=== PATIENT | female | born 1995 | race Caucasian/White ===

== ENCOUNTER → 2019-09-18 17:26 | Outpatient (CLI) | payer OTHER, SELFPAY | DX: Z23 Encounter for immunization (principal) | CPT/HCPCS: 90471; 90686 ==

== ENCOUNTER → 2020-08-27 | Outpatient (CLI) | payer OTHER, SELFPAY | PROVIDERS: Referring Provider Internal Medicine; Visit Provider Internal Medicine | DX: Z23 Encounter for immunization (principal) | CPT/HCPCS: 90471; 90686 ==

== ENCOUNTER → 2020-11-25 08:24 | Outpatient (CLI) | payer OTHER, SELFPAY ==
[2020-11-25] MEDS: COVID-19 VACC(MODERNA-1)/PF 100 MCG/0.5 ML VIAL IM (08:31)
== END ==
PROVIDERS: Visit Provider Internal Medicine
DX: Z23 Encounter for immunization (principal)
CPT/HCPCS: 0011A; 91301

== ENCOUNTER → 2021-09-08 | Outpatient (CLI) | payer OTHER, SELFPAY | PROVIDERS: Referring Provider Internal Medicine; Visit Provider Internal Medicine | DX: Z23 Encounter for immunization (principal) | CPT/HCPCS: 90471; 90686 ==

== ENCOUNTER → 2022-06-06 15:40 | Outpatient (CLI) | payer OTHER, SELFPAY ==
[2022-06-06 17:00] LABS: Add Manual Diff / Slide Review NO; Basophils Absolute Auto 0 /uL (0-100); Basophils Percent Auto 0.4 % (0-2); Eosinophils Absolute Auto 0 /uL (0-450); Eosinophils Percent Auto 0.6 % (2-4); Hematocrit 36.7 % (36-46); Lymphocytes Absolute Auto 1300 /uL (1100-4500); Lymphocytes Percent Auto 19.9 % (25-40); Mean Corpuscular HGB Conc 35.3 % (30-36); Mean Corpuscular Hemoglobin 32.9 PG (26-34); Mean Corpuscular Volume 93.1 fL (80-100); Monocytes Absolute Auto 400 /uL (0-900); Neutrophils Absolute Auto 4600 /uL (1500-7000); Neutrophils Percent Auto 73.1 % (50-75); Platelet Count 252 X10^3/uL (150-400); Red Blood Cell Count 3.94 X10^6/uL (4.0-5.2); Red Cell Distribution Width 12.5 % (11.6-14.8); White Blood Cell Count 6.3 X10^3/uL (4.5-11.0)
[2022-06-06 17:14] LABS: Appearance Urine UA CLEAR; Bilirubin Urine UA NEGATIVE (NEGATIVE); Color Urine UA YELLOW; Glucose Urine UA NEGATIVE (Negative); Ketones Urine UA NEGATIVE (NEGATIVE); Leukocyte Esterase Urine UA TRACE (NEGATIVE); Nitrite Urine UA NEGATIVE (Negative); Occult Blood Urine UA TRACE-INTACT (Negative); Protein Urine UA NEGATIVE (Negative); Urobilinogen Urine UA 0.2 E.U./dL (0.2)
[2022-06-06 17:55] LABS: Hepatitis B Surface Antigen NEGATIVE s/c (NEGATIVE); Rubella Antibody IgG 17.5 IU/mL (>15)
[2022-06-06 18:14] LABS: HIV 1 & 2 Ab/Ag 4th Gen Combo NEGATIVE (NEGATIVE); Hep C Virus Ab w/Reflex Quant NEGATIVE s/c (NEGATIVE)
[2022-06-06 19:02] LABS: Bacteria Urine Few (2-10); Calcium Oxalate Crystals Urine Few; RBC Urine 0-1/HPF (0-5/HPF); Squamous Epithelial Cell Urine 1-5 /HPF (0-5/HPF); WBC Urine 1-5/HPF (0-5/HPF)
[2022-06-07 07:39] LABS: RPR Screen Non Reactive (Non Reactive)
[2022-06-07 14:20] LABS: Varicella IgG Antibody 189 index (Immune >165)
== END ==
PROVIDERS: PCP Physician Assistant; Referring Provider Obstetrics & Gynecology; Visit Provider Obstetrics & Gynecology
DX: Z34.01 Encounter for supervision of normal first pregnancy, first trimester (principal)
CPT/HCPCS: 36415; 80055; 81003; 81015; 86787; 86803; 86850; 86900; 86901; 87086; 87389

== ENCOUNTER → 2022-08-02 10:31 | Outpatient (CLI) | payer OTHER, SELFPAY ==
[2022-08-04 22:04] LABS: AFP Value 43.9 ng/mL (.); Gest Age on Col Date 18.3 weeks (.); Insulin Dep Diabetes No (.); OSBR Risk 1IN 10000 (.); Results Report (.); Test Results *Screen Negative* (.)
== END ==
PROVIDERS: PCP Physician Assistant; Referring Provider Obstetrics & Gynecology; Visit Provider Obstetrics & Gynecology
DX: Z34.02 Encounter for supervision of normal first pregnancy, second trimester (principal); Z3A.18 18 weeks gestation of pregnancy
CPT/HCPCS: 36415; 82105

== ENCOUNTER → 2022-08-16 12:23 | Outpatient (CLI) | payer OTHER, SELFPAY ==
--- NOTE | 2022-08-16 12:25 | DI.US.S_ITS ---
PROCEDURE: US OB >= 14 WEEKS FETUS INDICATIONS: ANATOMY SCREEN OUTSIDE/PRIOR DATING DATA: Last menstrual period (LMP): Unknown LMP-based estimated date of delivery (CHERISE): Unknown. First dating scan (date and location): 06/01/2022. Estimated date of delivery (CHERISE) from first dating scan: 12/29/2021. The calculations are made using the ultrasound CHERISE of 12/29/2021. TECHNIQUE: Real-time scanning was performed of the fetus, with image documentation and biometric measurements. COMPARISON: None. FINDINGS: General: A single living intrauterine gestation is present. Presentation: Vertex. Placenta: Placental position is posterior , without previa. Amniotic fluid index: 8.9 cm, normal range is 5-24 cm. Single deepest vertical pocket is 2.9 cm. heart rate: 150 beats per minute. Maternal cervical canal: 4.1 cm long. Normal lower limit is 2.5 cm. biometrics: Biparietal diameter: 4.8 cm 20 weeks 4 days Head circumference: 19 cm 21 weeks 2 days Abdominal circumference: 15.9 cm 21 weeks 0 days Femur length: 3.5 cm 21 weeks 0 days Composite gestational age from initial scan 20 weeks 6 days Composite gestational age from present scan: 21 weeks 0 days Estimated weight and percentile: 393 g 54th percentile Anatomic survey: Neuro: Ventricles are non-dilated at less than 10 mm. Cisterna magna is normal at 3-11 mm. Cerebellum is normal in size and morphology. Nuchal skin fold: Normal at less than 6 mm between 14-21 weeks gestational age. Face: Nose and lips, facial profile are normal. Spine: No evidence for spina bifida. Heart: 4-chambered heart is present, with normal ventricular outflow tracts. Diaphragm: Diaphragm is intact. Stomach: Left-sided stomach is present. Kidneys: No hydronephrosis. Normal is less than 5 mm in 2nd trimester, less than 7 mm in 3rd trimester. Cord: 3-vessel cord has orthotopic insertion. Bladder: Normal in size. Extremities: Limited visualization of feet. IMPRESSION: Single live intrauterine with ultrasound gestational age 21 weeks 0 days. Suboptimal visualization of feet. Follow-up imaging is recommended. We strive to produce accurate, complete, and clear reports of imaging services. To assist us in improving patient care, this report was composed using standard report templates and voice recognition software. Therefore, it may contain abnormal punctuation, insertions and/or omissions. Occasional wrong-word or sound-alike substitutions may occur. Though we review the report and make efforts to correct it, we do recommend that the report be read carefully in proper context to recognize any text inaccuracies. Dictated by: Lakeshia Mo M.D. on 08/16/2022 at 16:58 Approved by: Lakeshia Mo M.D. on 08/16/2022 at 17:02
== END ==
PROVIDERS: PCP Physician Assistant; Referring Provider Obstetrics & Gynecology; Visit Provider Obstetrics & Gynecology
DX: Z34.02 Encounter for supervision of normal first pregnancy, second trimester (principal); Z3A.21 21 weeks gestation of pregnancy
CPT/HCPCS: 76811

== ENCOUNTER → 2022-09-28 15:02 | Outpatient (CLI) | payer OTHER, SELFPAY ==
[2022-09-28 16:30] LABS: Hematocrit 33.7 % (36-46)
[2022-09-28 16:41] LABS: GTT (PREG) 1 Hour PP 50gm Dose 118 mg/dL (76-139)
== END ==
PROVIDERS: Physician Assistant Medical; PCP Physician Assistant; Referring Provider Obstetrics & Gynecology; Visit Provider Obstetrics & Gynecology
DX: Z34.02 Encounter for supervision of normal first pregnancy, second trimester (principal); Z3A.26 26 weeks gestation of pregnancy
CPT/HCPCS: 36415; 82950; 85014; 85018

== ENCOUNTER → 2022-12-14 15:30 | Outpatient (CLI) | payer OTHER, SELFPAY ==
[2022-12-16 14:12] LABS: Strep Grp B PCR NEG for Grp B Strep
== END ==
PROVIDERS: PCP Physician Assistant; Visit Provider Obstetrics & Gynecology
DX: Z34.03 Encounter for supervision of normal first pregnancy, third trimester (principal); Z3A.37 37 weeks gestation of pregnancy
CPT/HCPCS: 87653

== ENCOUNTER 2022-12-21 14:23 | Outpatient (CLI) | payer OTHER, SELFPAY | END 2022-12-21 15:32 | disposition home or self-care (01) | LOC: LABOR 14:53 → OB 12-22 13:54 | PROVIDERS: PCP Physician Assistant; Referring Provider Obstetrics & Gynecology; Visit Provider Obstetrics & Gynecology | DX: O41.03X0 Oligohydramnios, third trimester, not applicable or unspecified (principal); Z3A.38 38 weeks gestation of pregnancy | CPT/HCPCS: 59025; G0378; G0379 ==

== ENCOUNTER 2022-12-28 18:04 | Inpatient (IN) | payer OTHER, SELFPAY ==
[2022-12-28 18:53] LABS: Add Manual Diff / Slide Review NO; Basophils Absolute Auto 0 /uL (0-100); Basophils Percent Auto 0.3 % (0-2); Eosinophils Absolute Auto 0 /uL (0-450); Eosinophils Percent Auto 0.3 % (2-4); Hematocrit 36.3 % (36-46); Hemoglobin 12.4 g/dL (12.0-16.0); Lymphocytes Absolute Auto 1700 /uL (1100-4500); Lymphocytes Percent Auto 16.4 % (25-40); Mean Corpuscular HGB Conc 34.3 % (30-36); Mean Corpuscular Volume 93.3 fL (80-100); Monocytes Absolute Auto 600 /uL (0-900); Monocytes Percent Auto 5.7 % (3-14); Neutrophils Absolute Auto 8000 /uL (1500-7000); Neutrophils Percent Auto 77.3 % (50-75); Platelet Count 248 X10^3/uL (150-400); Red Blood Cell Count 3.89 X10^6/uL (4.0-5.2); Red Cell Distribution Width 14.1 % (11.6-14.8); White Blood Cell Count 10.3 X10^3/uL (4.5-11.0)
[2022-12-28] MEDS: DINOPROSTONE VAG (CERVIDIL) 10 MG VAG (19:39)
[2022-12-29] MEDS: ACETAMINOPHEN 325 MG TABLET 650 MG PO ×3 (02:26→22:13)
[2022-12-29] MEDS: ONDANSETRON 4 MG/2 ML INJ IV (02:27)
[2022-12-29] MEDS: FENT 2MCG/ML BUPIV 0.125% EPI 200 MCG/100 ML PLAST..BAG 6 MCG EPIDURAL (06:15)
[2022-12-29 07:00] VITALS: BP 129/82; PULSE 100; RESP 16; TEMP 36.2
[2022-12-29] MEDS: OXYTOCIN PREMIX 30 UNIT/500 ML PLAST..BAG 200 UNIT IV (07:10)
[2022-12-29] MEDS: LACTATED RINGERS 1,000 ML 100 ML IV (07:10)
[2022-12-29] MEDS: CALCIUM CARBONATE 500 MG TAB 1000 MG PO (09:35)
[2022-12-29] MEDS: OXYTOCIN PREMIX 30 UNIT/500 ML PLAST..BAG IV (09:42)
--- NOTE | 2022-12-29 11:49 | P.PCNOB_ITS ---
Events: Labor Induction Labor & Delivery Delivery date: 12/29/22 Cervical ripening method: per Cervidil protocol Induction method: none Delivery augmentation: pitocin Delivery monitor: external FHT and external uterine Route of delivery: vacuum extraction (due to deep variable decels with pushing) Indication for instrumentation: nonreassuring FHR tracing Episiotomy description: None L&D Laceration Description: Perineal - 2nd Degree and Vaginal - 2nd Degree Delivery repair: vicryl and chromic Quantitative Blood Loss: 75 Anesthesia Type: Epidural and Local (for repair) Complications: None Narrative: Patient complete and pushed for 2 hours and 8 minutes. A vacuum was applied due to deep variable decelerations. With 1 pull the vertex delivered over an intact perineum. A nuchal cord x1 was reduced on the perineum. The remainder of the body delivered without difficulty and was placed on mom's abdomen. After the cord stopped pulsing, the cord was double clamped and cut. Cord bloods were obtained. Pitocin was given in the IV fluids. The placenta delivered intact with a three-vessel cord at 11:29 a.m.. Fundus was massaged to firm. A second- degree perineal/vaginal laceration was repaired in the usual fashion. Hemostasis was achieved. Apgars 8 at 1 minute and 9 at 5 minutes. weight 6 lb 15.7 oz. QBL 75 cc. Epidural analgesia. . Mom and infant stable to recovery. [place] Baby 1: Infant gender: Female Presentation: vertex Position: Occiput Posterior Placenta delivery description: Spontaneous Cord Vessel Description: 3 Vessels, Nuchal Cord, Loose, Reduced (on the perineum), Clamped/Cut (after cord stopped pulsing) and Around Body x1 score (1 min): 8 score (5 min): 9 weight: 6 lb 15.7 oz Plan for aftercare: Routine care
[2022-12-29] MEDS: LIDOCAINE 1% 20 ML (12:26)
[2022-12-29] MEDS: DERMOPLAST SPRAY 20% 60 ML 1 SPRAY TOP (16:35)
[2022-12-29] MEDS: IBUPROFEN 600 MG TABLET PO ×2 (16:36→22:12)
[2022-12-29] MEDS: PANTOPRAZOLE DR 20 MG TABLET PO (18:20)
[2022-12-30] MEDS: IBUPROFEN 600 MG TABLET PO (04:52)
[2022-12-30] MEDS: ACETAMINOPHEN 325 MG TABLET 650 MG PO (04:53)
[2022-12-30 06:54] LABS: Hematocrit 33.9 % (36-46); Hemoglobin 11.3 g/dL (12.0-16.0)
[2022-12-30] MEDS: DOCUSATE 100 MG CAPSULE PO (09:26)
[2022-12-30] MEDS: PRENATAL VIT,CALC/IRON/FOLIC 1 TABLET 1 TAB PO (09:26)
[2022-12-30] MEDS: LANOLIN OINT 7 GM 1 APPLIC TOP (09:26)
== END 2022-12-30 14:41 | disposition home or self-care (01) | DRG 807 ==
PROVIDERS: Admitting Provider Obstetrics & Gynecology; PCP Physician Assistant; Referring Provider Obstetrics & Gynecology; Visit Provider Obstetrics & Gynecology
DX: O76 Abnormality in fetal heart rate and rhythm complicating labor and delivery (principal); Z37.0 Single live birth; O70.1 Second degree perineal laceration during delivery; Z3A.38 38 weeks gestation of pregnancy
CPT/HCPCS: 36415; 59050; 59200; 59400; 85014; 85018; 85025; 86850; 86900; 86901; G0379; J2405; J2590